=== PATIENT | female | born 1960 | race Caucasian/White ===

== ENCOUNTER 2019-01-24 18:42 | Emergency (ER) | payer BC, OTHER ==
[~2019-01-24] VITALS: Ht 165.1 cm; Wt 99.8 kg
[~2019-01-24 18:42] MED LIST: ACET300T4 PO; IBUP800T24 PO; INSLANTI SC; INSUINJ7 IJ; LEVO50TA7 PO; OMEP20TA44 PO; ONDA-143 PO; PAR20T PO
[2019-01-24 19:52] VITALS: BP 140/93
== END 2019-01-25 00:44 | disposition home or self-care (01) ==
LOC: ER 18:42
DX: R07.89 Other chest pain (principal); R07.81 Pleurodynia; E11.9 Type 2 diabetes mellitus without complications; K21.9 Gastro-esophageal reflux disease without esophagitis; E78.5 Hyperlipidemia, unspecified; I10 Essential (primary) hypertension; E07.9 Disorder of thyroid, unspecified; Z79.4 Long term (current) use of insulin; Z79.899 Other long term (current) drug therapy
CPT/HCPCS: 71046

== ENCOUNTER 2020-03-10 17:30 | Emergency (ER) | payer MEDICAID, OTHER ==
[~2020-03-10] VITALS: Ht 165.1 cm; Wt 93.0 kg
[2020-03-10] MEDS ORDERED: PANTOPRAZOLE 40 MG/10 ML VIAL INJ IV STA (18:56)
[2020-03-10] MEDS ORDERED: ONDANSETRON HCL 4 MG/2 ML VIAL IV ONE (19:00)
[2020-03-10] MEDS ORDERED: MORPHINE SULFATE 4 MG/ML SYR/VIAL IV ONE (19:00)
[2020-03-10 20:09] LABS: Basophils # (auto) 0.1 10 ^3/uL (0-0.2); Basophils % (auto) 0.9 % (0.0-2.0); Eosinophils # (auto) 0.1 10 ^3/uL (0-0.8); Hematocrit 41.3 % (36.0-46.0); Hemoglobin 14.2 g/dL (12.2-16.2); Lymphocytes # (auto) 1.9 10 ^3/uL (0.4-5.4); Mean Corpuscular Hgb Conc. 34.3 g/dL (32.0-36.0); Mean Corpuscular Volume 87.3 fL (80.0-100.0); Monocytes # (auto) 0.6 10 ^3/uL (0-1.3); Monocytes % (auto) 7.2 % (0.0-12.0); Neutrophils % (auto) 65.9 % (37.0-80.0); Nucleated Red Blood Cells % 0.2 %; Platelet Count (auto) 254 10^3/uL (140-450); Red Blood Cells 4.73 10^6/uL (4.0-5.20); Red Cell Distribution Width 13.5 % (11.8-14.3); White Blood Cell 7.6 10^3/uL (4.4-10.8)
[2020-03-10 20:15] LABS: Urine Bacteria FEW /hpf (None Seen); Urine Blood Negative /uL (Negative); Urine Hyaline Cast MANY /lpf (0 - 2); Urine Mucus MODERATE (None Seen); Urine Specific Gravity 1.032 (1.001-1.035); Urine WBC 35 /hpf (0 - 5)
[2020-03-10 20:49] LABS: Albumin 4.1 g/dL (3.4-5.0); Calcium 10.3 mg/dL (8.5-10.1); Potassium 4.5 mmol/L (3.5-5.1)
[2020-03-10 20:54] LABS: BUN/Creatinine Ratio 14.4; Bilirubin, Total 0.7 mg/dL (0.2-1.0); Total Protein 7.7 g/dL (6.4-8.2)
[2020-03-11 00:30] VITALS: BP 142/76
== END 2020-03-11 00:33 | disposition home or self-care (01) ==
LOC: ER 17:30
DX: N39.0 Urinary tract infection, site not specified (principal)
CPT/HCPCS: 36415; 74176; 80053; 81001; 83690; 85025; 93005

== ENCOUNTER 2020-07-19 14:41 | Inpatient (IN) | payer BC, MEDICAID ==
[~2020-07-19] VITALS: Ht 165.1 cm; Wt 86.7 kg
[~2020-07-19 14:41] MED LIST changes: -IBUP800T24 PO; +IBUP800T27 PO
[2020-07-19 15:20] LABS: Basophils # (auto) 0.1 10 ^3/uL (0-0.2); Basophils % (auto) 0.8 % (0.0-2.0); Eosinophils # (auto) 0.1 10 ^3/uL (0-0.8); Eosinophils % (auto) 1.1 % (0.0-7.0); Hematocrit 36.3 % (36.0-46.0); Hemoglobin 12.7 g/dL (12.2-16.2); Lymphocytes # (auto) 1.1 10 ^3/uL (0.4-5.4); Lymphocytes % (auto) 16.3 % (10.0-50.0); Mean Corpuscular Hemoglobin 31.1 pg (28.0-32.0); Mean Corpuscular Volume 88.6 fL (80.0-100.0); Monocytes # (auto) 0.4 10 ^3/uL (0-1.3); Monocytes % (auto) 6.7 % (0.0-12.0); Neutrophils # (auto) 4.8 10 ^3/uL (1.6-8.6); Neutrophils % (auto) 75.1 % (37.0-80.0); Platelet Count (auto) 205 10^3/uL (140-450); Red Blood Cells 4.09 10^6/uL (4.0-5.20); Red Cell Distribution Width 12.7 % (11.8-14.3); White Blood Cell 6.5 10^3/uL (4.4-10.8)
[2020-07-19 15:41] LABS: Partial Thromboplastin Time 20.5 sec (23.0-31.2)
[2020-07-19 15:43] LABS: Alanine Aminotransferase 16 U/L (13-56); Albumin 3.2 g/dL (3.4-5.0); Anion Gap 10 (5-15); Aspartate Aminotransferase 11 U/L (15-37); BUN/Creatinine Ratio 13.4; Blood Urea Nitrogen 11 mg/dL (7-18); Carbon Dioxide 20 mmol/L (21-32); Chloride 106 mmol/L (98-107); GFR African American 91 mL/min; GFR Non-African American 76 mL/min; Glucose 332 mg/dL (74-106); Potassium 3.3 mmol/L (3.5-5.1); Sodium 136 mmol/L (136-145)
[2020-07-19] MEDS ORDERED: ACETAMINOPHEN 325 MG TAB PO ONE (15:45)
[2020-07-19 15:48] LABS: Alkaline Phosphatase 91 U/L (45-117); Bilirubin, Total 0.7 mg/dL (0.2-1.0)
[2020-07-19] MEDS ORDERED: POTASSIUM CHL 20 Meq TABLET PO ONE (16:30)
[2020-07-19] MEDS ORDERED: LABETALOL HCL 5 MG/ML 4ML SYRINGE IV ONE (18:45)
[2020-07-19] MEDS ORDERED: INSULIN LANTUS (GLARGINE) 1 /0.01ml (100units/ml) SC ONE (19:15)
[2020-07-19] MEDS ORDERED: SODIUM CHLORIDE 0.9% 1,000 ML IV ONE (19:15)
[2020-07-19] MEDS ORDERED: ONDANSETRON HCL 4 MG/2 ML VIAL IV PRN (19:15)
[2020-07-19] MEDS ORDERED: NITROGLYCERIN 0.4 MG SL TAB SL PRN (19:15)
[2020-07-19] MEDS ORDERED: DEXTROSE (50%) 50ML SYRG IV PRN (19:15)
[2020-07-19] MEDS ORDERED: MORPHINE SULF INJ 2 MG/ML SYRINGE 1ML IV PRN (19:15)
[2020-07-19] MEDS: ACCU-CHEK COMFORT CURVE STRIP VI SCH (19:38)
[2020-07-19] MEDS: MORPHINE SULF INJ 2 MG/ML SYRINGE 1ML IV PRN (19:51)
[2020-07-19] MEDS: hydrALAZINE HCL 20 MG/ML VL IV PRN (21:35)
[2020-07-19] MEDS ORDERED: LORazepam 2MG/ML-1ML VIAL IV PRN (22:15)
[2020-07-19] MEDS: InsuLIN REG 1unit/0.01ml Soln (100units/ml) SC SCH (22:31)
[2020-07-19 22:46] LABS: Urine Bacteria NONE SEEN /hpf (None Seen); Urine Blood Negative /uL (Negative); Urine Specific Gravity 1.015 (1.001-1.035); Urine WBC 1 /hpf (0 - 5)
[2020-07-20] VITALS (8 sets, daily range): BP systolic 143–160; BP diastolic 69–79
[2020-07-20] MEDS ORDERED: DULO60CA PO (05:55)
[2020-07-20] MEDS ORDERED: ZOLP10TA PO (05:55)
[2020-07-20] MEDS ORDERED: CHOL20007 PO (05:55)
[2020-07-20] MEDS ORDERED: CYA100I IM (05:55)
[2020-07-20] MEDS ORDERED: ATOR10TA52 PO (05:55)
[2020-07-20] MEDS ORDERED: LISI2.5T47 PO (05:55)
[2020-07-20] MEDS ORDERED: LEVO100I IV (06:30)
[2020-07-20] MEDS: ACCU-CHEK COMFORT CURVE STRIP VI SCH ×4 (06:37→22:06)
[2020-07-20] MEDS: InsuLIN REG 1unit/0.01ml Soln (100units/ml) SC SCH ×4 (06:46→22:09)
[2020-07-20] MEDS: MORPHINE SULF INJ 2 MG/ML SYRINGE 1ML IV PRN (16:03)
[2020-07-20] MEDS: PRAMIPEXOLE DIHYDROCHLORIDE MO 0.25 MG TAB PO SCH (19:50)
[2020-07-20] MEDS: hydrALAZINE HCL 20 MG/ML VL IV PRN (22:07)
[2020-07-21] MEDS: MORPHINE SULF INJ 2 MG/ML SYRINGE 1ML IV PRN (03:24)
[2020-07-21 05:00] VITALS: BP_SYST 151; BP_SYST 95; BP_DIAS 59; BP_DIAS 72
[2020-07-21] MEDS: ACCU-CHEK COMFORT CURVE STRIP VI SCH ×4 (06:43→22:21)
[2020-07-21] MEDS: InsuLIN REG 1unit/0.01ml Soln (100units/ml) SC SCH ×4 (06:45→22:31)
[2020-07-21 08:31] VITALS: BP 138/73
[2020-07-21 10:25] LABS: Basophils # (auto) 0.1 10 ^3/uL (0-0.2); Basophils % (auto) 0.6 % (0.0-2.0); Eosinophils # (auto) 0 10 ^3/uL (0-0.8); Eosinophils % (auto) 0.2 % (0.0-7.0); Hematocrit 41.2 % (36.0-46.0); Hemoglobin 14.4 g/dL (12.2-16.2); Lymphocytes # (auto) 1.3 10 ^3/uL (0.4-5.4); Lymphocytes % (auto) 14.4 % (10.0-50.0); Mean Corpuscular Hemoglobin 31.1 pg (28.0-32.0); Mean Corpuscular Hgb Conc. 35.1 g/dL (32.0-36.0); Mean Corpuscular Volume 88.8 fL (80.0-100.0); Monocytes # (auto) 0.5 10 ^3/uL (0-1.3); Monocytes % (auto) 4.9 % (0.0-12.0); Neutrophils # (auto) 7.4 10 ^3/uL (1.6-8.6); Neutrophils % (auto) 79.9 % (37.0-80.0); Platelet Count (auto) 251 10^3/uL (140-450); Red Blood Cells 4.64 10^6/uL (4.0-5.20); White Blood Cell 9.3 10^3/uL (4.4-10.8)
[2020-07-21 10:42] LABS: Albumin 3.8 g/dL (3.4-5.0); Calcium 9.7 mg/dL (8.5-10.1); Magnesium 1.7 mg/dL (1.6-2.6); Potassium 4.6 mmol/L (3.5-5.1)
[2020-07-21 10:47] LABS: Total Protein 7.5 g/dL (6.4-8.2)
[2020-07-21] MEDS ORDERED: ZOLPIDEM TARTRATE 5 MG TAB PO PRN (11:15)
[2020-07-21] MEDS: PARoxetine 20 MG TAB PO ONE ×2 (11:15→12:00)
[2020-07-21] MEDS ORDERED: LEVOTHYROXINE SODIUM 50 MCG TAB PO ONE (11:15)
[2020-07-21] MEDS ORDERED: HYDROcodone-ACET 5/325MG TAB PO PRN (12:30)
[2020-07-21 13:00] VITALS: BP 145/80
[2020-07-21] MEDS: DULoxetine HCL 30 MG CAP PO SCH (13:05)
[2020-07-21] MEDS: LISINOPRIL 5 MG TAB PO SCH (13:06)
[2020-07-21 16:44] VITALS: BP 127/71
[2020-07-21] MEDS: PRAMIPEXOLE DIHYDROCHLORIDE MO 0.25 MG TAB PO SCH (20:11)
[2020-07-21 21:12] LABS: % Iron Saturation 32.2 % (15-50)
[2020-07-21 22:00] VITALS: BP 147/72
[2020-07-21] MEDS: INSULIN LANTUS (GLARGINE) 1 /0.01ml (100units/ml) SC SCH (22:31)
[2020-07-22 05:00] VITALS: BP 145/79
[2020-07-22] MEDS: ACCU-CHEK COMFORT CURVE STRIP VI SCH ×2 (06:36→12:11)
[2020-07-22] MEDS: InsuLIN REG 1unit/0.01ml Soln (100units/ml) SC SCH ×2 (06:42→12:12)
[2020-07-22] MEDS ORDERED: LEVOTHYROXINE SODIUM 50 MCG TAB PO SCH (07:00)
[2020-07-22 08:18] VITALS: BP 126/77
[2020-07-22] MEDS: DULoxetine HCL 30 MG CAP PO SCH (09:26)
[2020-07-22] MEDS: LISINOPRIL 5 MG TAB PO SCH (09:27)
[2020-07-22 09:36] LABS: Albumin 3.4 g/dL (3.4-5.0); Calcium 9.4 mg/dL (8.5-10.1); Magnesium 2.1 mg/dL (1.6-2.6); Potassium 4.8 mmol/L (3.5-5.1)
[2020-07-22 09:40] LABS: BUN/Creatinine Ratio 14.6; Bilirubin, Total 0.7 mg/dL (0.2-1.0); Phosphorus 3.6 mg/dL (2.5-4.90); Total Protein 6.9 g/dL (6.4-8.2)
[2020-07-22] MEDS ORDERED: PARoxetine 20 MG TAB PO SCH (10:00)
[2020-07-22] MEDS: INSULIN LANTUS (GLARGINE) 1 /0.01ml (100units/ml) SC SCH (10:00)
[2020-07-22 12:42] VITALS: BP 132/75
[2020-07-22 14:04] VITALS: BP 132/75
== END 2020-07-22 14:44 | disposition home or self-care (01) | DRG 312 ==
LOC: EDBD 14:41 → ER 14:43 → TELE 19:19 → TELE-CENTR 07-20 06:00
PROVIDERS: ADMIT Internal Medicine; ATTEND Internal Medicine
DX: R55 Syncope and collapse (principal); F32.9 Major depressive disorder, single episode, unspecified; K21.9 Gastro-esophageal reflux disease without esophagitis; E03.9 Hypothyroidism, unspecified; S00.03XA Contusion of scalp, initial encounter; S13.4XXA Sprain of ligaments of cervical spine, initial encounter; E87.6 Hypokalemia; Z20.822 Contact with and (suspected) exposure to COVID-19; G25.81 Restless legs syndrome; G47.00 Insomnia, unspecified; W18.39XA Other fall on same level, initial encounter; I11.9 Hypertensive heart disease without heart failure; E11.9 Type 2 diabetes mellitus without complications; E78.5 Hyperlipidemia, unspecified; Z81.8 Family history of other mental and behavioral disorders; Z82.5 Family history of asthma and other chronic lower respiratory diseases; Z82.49 Family history of ischemic heart disease and other diseases of the circulatory system; Z83.3 Family history of diabetes mellitus; Z90.49 Acquired absence of other specified parts of digestive tract; Z90.89 Acquired absence of other organs; Z82.61 Family history of arthritis; Y93.89 Activity, other specified; Y92.89 Other specified places as the place of occurrence of the external cause; Y99.8 Other external cause status; Z79.899 Other long term (current) drug therapy
CPT/HCPCS: 36415; 70450; 70551; 71045; 72125; 80053; 81001; 82728; 82962; 83540; 83550; 83735; 84100; 84484; 85025; 85610; 85730; 87426; 93005; 93306; 95819; G0378; J1815

== ENCOUNTER 2020-12-02 14:30 | Emergency (ER) | payer BC, MEDICAID ==
[~2020-12-02] VITALS: Ht 165.1 cm; Wt 88.9 kg
[~2020-12-02 14:30] MED LIST changes: -ACET300T4 PO; +ATOR10TA52 PO; +CHOL20007 PO; +CYA100I IM; +DULO60CA PO; +LEVO100I IV; +LISI2.5T47 PO; -PAR20T PO; +ZOLP10TA PO
[2020-12-02 15:23] VITALS: BP 132/62
[2020-12-02] MEDS ORDERED: ACETAMINOPHEN/CODEINE#3 (300/30mg) TAB PO ONE (15:30)
== END 2020-12-02 16:53 | disposition home or self-care (01) ==
LOC: ER 14:30
DX: S00.03XA Contusion of scalp, initial encounter (principal); I10 Essential (primary) hypertension; E11.9 Type 2 diabetes mellitus without complications; E78.00 Pure hypercholesterolemia, unspecified; Z90.49 Acquired absence of other specified parts of digestive tract; Z90.89 Acquired absence of other organs; Z79.4 Long term (current) use of insulin; Z79.899 Other long term (current) drug therapy; W06.XXXA Fall from bed, initial encounter; Y93.89 Activity, other specified; Y92.89 Other specified places as the place of occurrence of the external cause; Y99.8 Other external cause status
CPT/HCPCS: 70450; 72040

== ENCOUNTER 2021-12-18 13:55 | Emergency (ER) | payer BC, MEDICAID ==
[~2021-12-18] VITALS: Ht 165.1 cm; Wt 95.0 kg
[2021-12-18] MEDS ORDERED: ONDANSETRON HCL 4 MG/2 ML VIAL IV ONE (14:15)
[2021-12-18] MEDS ORDERED: MORPHINE SULFATE 4 MG/ML SYR/VIAL IV ONE (14:15)
[2021-12-18] MEDS ORDERED: SODIUM CHLORIDE 0.9% 500 ML IVB ONE (14:15)
[2021-12-18 14:40] LABS: Hematocrit 41.6 % (36.0-46.0); Hemoglobin 13.7 g/dL (12.2-16.2); Mean Corpuscular Hgb Conc. 32.9 g/dL (32.0-36.0); Mean Corpuscular Volume 85.2 fL (80.0-100.0); Red Blood Cells 4.88 10^6/uL (4.0-5.20); Red Cell Distribution Width 14.6 % (11.8-14.3)
[2021-12-18 14:46] LABS: Albumin 3.7 g/dL (3.4-5.0); Calcium 9.3 mg/dL (8.5-10.1); Potassium 4.2 mmol/L (3.5-5.1)
[2021-12-18 14:48] LABS: BUN/Creatinine Ratio 8.8
[2021-12-18 15:00] LABS: Bilirubin, Total 0.6 mg/dL (0.2-1.0); Total Protein 7.2 g/dL (6.4-8.2)
[2021-12-18 15:38] LABS: Basophils % (manual) 0 (0.0-2.0); Blast Cells 0; Metamyelocytes % 0; Myelocytes % 0; Promyelocytes % 0; Reactive Lymphocytes 0
[2021-12-18 16:26] LABS: Band Neutrophils % (manual) 2; Eosinophils % (manual) 6 (0-7); Lymphocytes % (manual) 21 (10.0-50.0); Monocytes % (manual) 4 (0-12)
[2021-12-18] MEDS ORDERED: TRAM-297 PO (17:07)
[2021-12-18 18:27] VITALS: BP 128/88
[2021-12-18 19:24] LABS: Urine Bacteria FEW /hpf (None Seen); Urine Blood Negative /uL (Negative); Urine Budding Yeast FEW /hpf (None Seen); Urine Specific Gravity 1.009 (1.001-1.035); Urine WBC 139 /hpf (0 - 5)
== END 2021-12-18 18:27 | disposition home or self-care (01) ==
LOC: ER 13:55
DX: R10.11 Right upper quadrant pain (principal); R10.31 Right lower quadrant pain; I10 Essential (primary) hypertension; E11.9 Type 2 diabetes mellitus without complications; E78.5 Hyperlipidemia, unspecified; E03.9 Hypothyroidism, unspecified; Z90.49 Acquired absence of other specified parts of digestive tract; Z90.89 Acquired absence of other organs; Z79.4 Long term (current) use of insulin; Z79.1 Long term (current) use of non-steroidal anti-inflammatories (NSAID); Z79.899 Other long term (current) drug therapy
CPT/HCPCS: 36415; 74176; 80053; 81001; 82150; 83690; 85007; 85027; 96360; 99284; J7040

== ENCOUNTER 2022-07-31 10:58 | Emergency (ER) | payer BC, MEDICAID ==
[~2022-07-31] VITALS: Ht 165.1 cm; Wt 100.0 kg
[~2022-07-31 10:58] MED LIST changes: +TRAM-297 PO
[2022-07-31] MEDS ORDERED: IOHEXOL 350 MG/ML 100ML IJ ONE (11:35)
[2022-07-31 11:45] LABS: INR 0.97 (0.9-1.15); Partial Thromboplastin Time 24.7 sec (24.6-33.4)
[2022-07-31 12:10] LABS: Basophils # (auto) 0.1 10 ^3/uL (0-0.2); Basophils % (auto) 0.9 % (0.0-2.0); Eosinophils # (auto) 0.2 10 ^3/uL (0-0.8); Eosinophils % (auto) 1.9 % (0.0-7.0); Hematocrit 42.1 % (36.0-46.0); Hemoglobin 14.7 g/dL (12.2-16.2); Lymphocytes # (auto) 1.9 10 ^3/uL (0.4-5.4); Lymphocytes % (auto) 19.2 % (10.0-50.0); Mean Corpuscular Hemoglobin 30.4 pg (28.0-32.0); Mean Corpuscular Hgb Conc. 34.9 g/dL (32.0-36.0); Mean Corpuscular Volume 87.3 fL (80.0-100.0); Monocytes # (auto) 0.5 10 ^3/uL (0-1.3); Monocytes % (auto) 5.3 % (0.0-12.0); Neutrophils # (auto) 7.2 10 ^3/uL (1.6-8.6); Neutrophils % (auto) 72.7 % (37.0-80.0); Nucleated Red Blood Cells % 0.1 %; Red Blood Cells 4.82 10^6/uL (4.0-5.20); Red Cell Distribution Width 13.9 % (11.8-14.3); White Blood Cell 9.9 10^3/uL (4.4-10.8)
[2022-07-31 12:17] LABS: Albumin 3.7 g/dL (3.4-5.0); Calcium 9.2 mg/dL (8.5-10.1); Magnesium 1.8 mg/dL (1.6-2.6); Potassium 3.8 mmol/L (3.5-5.1)
[2022-07-31 12:21] LABS: Bilirubin, Total 0.5 mg/dL (0.2-1.0); Total Protein 6.7 g/dL (6.4-8.2)
[2022-07-31 14:30] LABS: Urine Bacteria NONE SEEN /hpf (None Seen); Urine Blood Negative /uL (Negative); Urine Mucus FEW (None Seen); Urine WBC 11 /hpf (0 - 5)
[2022-07-31 14:36] LABS: Urine Specific Gravity > 1.050 (1.001-1.035)
[2022-07-31] MEDS ORDERED: CEPH-322 PO (15:28)
[2022-07-31] MEDS ORDERED: CIPR-173 PO (16:11)
[2022-07-31 16:15] VITALS: BP 123/57
== END 2022-07-31 16:24 | disposition home or self-care (01) ==
LOC: ER 10:58
DX: R07.89 Other chest pain (principal); N39.0 Urinary tract infection, site not specified
CPT/HCPCS: 36415; 71045; 71275; 80053; 81001; 83735; 83880; 84484; 85025; 85610; 85730; 93005; 99285; Q9967

== ENCOUNTER 2024-11-02 20:09 | Emergency (ER) | payer BC, MEDICAID ==
[~2024-11-02] VITALS: Ht 165.1 cm; Wt 99.4 kg
[~2024-11-02 20:09] MED LIST changes: +CEPH250C PO; +CIPR-173 PO; -DULO60CA PO; +DULO60CA41 PO; +IBUP-1456 PO; -IBUP800T27 PO
--- NOTE | 2024-11-02 20:39 | ED.PDOC ---
Psychiatric HPI Comments 64-year-old female who came to ER for overdose. Patient states at about 8:00 p.m. last night, she had an argument with her , she felt very upset, and she intentionally took 12 tablets of naproxen 500 mg. Patient denies being suicidal. Denies any homicidal or hallucinations. Denies any prior history of self-harm. Patient at this time experiencing epigastric pain with nausea. Chief Complaint: Overdose Time Seen by MD: 20:38 Primary Care Provider: MATA Diaz Notes: Nurses Notes Information Source: Patient Severity: Unable to Care for Self, Unable to Control Self Severity of Pain: Moderate Severity of Mental Status: Moderate Severity of Symptoms: Moderate Timing: Minutes Presents with: Depression, Anxiety, Unclear Thinking, Suicidal Ideation Attempt: Ingestion Ingestion: Intentional, Multiple, Ingestion Observed, Drug(s) Ingested (Naproxen 500 mg), Amount Ingested (12 tablets) Circumstance: Medical Clearance Stressors: Family, Relationships History of: Depression Associated signs and symptoms: Depression, Hopeless, Anxiety, Nausea, Abdominal Pain Past Medical History PAST MEDICAL HISTORY: Depression, DM, GERD, High Lipids, HTN, Thyroid Surgical History: Cholecystectomy, Tonsillectomy Surgical History (Other): Knee surgery TEST PREPARER History: No Pertinent TEST PREPARER History Family History Family History: Family hx of DM, Family hx of HTN Social History Smoker: Non-Smoker Alcohol: Denies ETOH Use Drugs: Denies Drug Use Lives In: Home Constitutional: denies: chills, diaphoresis, fatigue, fever, malaise, sweats, weakness, others EENTM: denies: blurred vision, double vision, ear bleeding, ear discharge, ear drainage, ear pain, ear ringing, eye pain, eye redness, hearing loss, mouth pa in, mouth swelling, nasal discharge, nose bleeding, nose congestion, nose pain, photophobia, tearing, throat pain, throat swelling, voice changes, others Respiratory: denies: cough, hemoptysis, orthopnea, SOB at rest, shortness of breath, SOB with excertion, stridor, wheezing, others Cardiovascular: denies: chest pain, dizzy spells, diaphoresis, Dyspnea on exertion, edema, irregular heart beat, left arm pain, lightheadedness, palpitations, PND, syncope, others Gastrointestinal: reports: abdominal pain, nausea; denies: abdomen distended, blood streaked bowels, constipated, diarrhea, dysphagia, difficulty swallowing, hematemesis, melena, poor appetite, poor fluid intake, rectal bleeding, rectal pain, vomiting, others Physical Exam General Appearance: No Apparent Distress, Normal HEENT: Normal ENT Inspection, Pharynx Normal, TMs Normal Neck: Full Range of Motion, Non-Tender, Normal, Normal Inspection Respiratory: Chest Non-Tender, Lungs Clear, No Accessory Muscle Use, No Respiratory Distress, Normal Breath Sounds Cardiovascular: No Edema, No JVD, No Murmur, No Gallop, Normal Peripheral Pulses, Regular Rate/Rhythm Breast Exam: Deferred Gastrointestinal: No Organomegaly, Non Tender, No Pulsatile Mass, Normal Bowel Sounds, Soft Genitalia: Deferred Pelvic: Deferred Rectal: Deferred Extremities: No calf tenderness, Normal capillary refill, Normal inspection, Normal range of motion, Non-tender, No pedal edema Musculoskeletal : Apperance: Normal Neurologic: Alert, verification engineer II-XII nml as Tested, No Motor Deficits, Normal Affect, Normal Mood, No Sensory Deficits Cerebellar Function: Normal Reflexes: Normal Skin: Dry, Normal Color, Warm Lymphatic: No Adenopathy Was a procedure done? Was a procedure done?: No Psych Differential Dx Psych. Differential Dx: Anxiety, Depression, Hopeless, Panic Disorder, Suicidal OD Differential Dx: Suicidal Attempt, Suicidal Gesture X-Ray, Labs, Meds, VS Vital Signs Date Time Temp Pulse Resp B/P (MAP) Pulse Ox O2 Delivery O2 Flow Rate FiO2 11/03/24 01:14 69 16 99 Room Air* 0 21 11/03/24 01:11 98.0 69 16 143/78 (99) 99 98.0 11/02/24 20:23 98.2 91 18 152/81 (104) 98 98.2 Lab Test 11/02/24 22:50 11/02/24 20:42 11/02/24 00:00 Range/Units Sodium Level 140 138 136-145 mmol/L Potassium Level 4.6 4.3 3.5-5.1 mmol/L Chloride Level 105 105 98-107 mmol/L Carbon Dioxide Level 25 26 20-31 mmol/L Anion Gap 10 7 5-15 Blood Urea Nitrogen 10 9 9-23 mg/dL Creatinine 1.19 H 1.24 H 0.550-1.02 mg/dL Glomerular Filtration Rate Calc 51 49 >90 mL/min BUN/Creatinine Ratio 8.4 L 7.3 L 10.0-20.0 Serum Glucose 266 H 262 H 74-106 mg/dL Calcium Level 9.8 10.3 8.7-10.4 mg/dL Total Bilirubin 0.7 0.6 0.2-1.0 mg/dL Aspartate Amino Transferase (AST) 13 14 13-40 U/L Alanine Aminotransferase (ALT) 17 19 7-40 U/L Alkaline Phosphatase 100 110 46-116 U/L Total Protein 6.5 6.5 5.7-8.2 g/dL Albumin 4.3 4.4 3.2-4.8 g/dL White Blood Count 8.7 4.4-10.8 10^3/uL Red Blood Count 4.75 4.0-5.20 10^6/uL Hemoglobin 13.9 12.2-16.2 g/dL Hematocrit 40.6 36.0-46.0 % Mean Corpuscular Volume 85.4 80.0-100.0 fL Mean Corpuscular Hemoglobin 29.2 28.0-32.0 pg Mean Corpuscular Hemoglobin Concent 34.1 32.0-36.0 g/dL Red Cell Distribution Width 14.5 H 11.8-14.3 % Platelet Count 308 140-450 10^3/uL Mean Platelet Volume 8.2 6.9-10.8 fL Neutrophils (%) (Auto) 61.7 37.0-80.0 % Lymphocytes (%) (Auto) 26.4 10.0-50.0 % Monocytes (%) (Auto) 7.7 0.0-12.0 % Eosinophils (%) (Auto) 3.3 0.0-7.0 % Basophils (%) (Auto) 0.9 0.0-2.0 % Neutrophils # (Auto) 5.4 1.6-8.6 10 ^3/uL Lymphocytes # (Auto) 2.3 0.4-5.4 10 ^3/uL Monocytes # (Auto) 0.7 0-1.3 10 ^3/uL Eosinophils # (Auto) 0.3 0-0.8 10 ^3/uL Basophils # (Auto) 0.1 0-0.2 10 ^3/uL Nucleated Red Blood Cells 0.0 % Salicylates Level < 3.0 -30 mg/dL Acetaminophen Level 2.0 L 10.0-20.0 UG/ML Plasma/Serum Blood Alcohol < 3.0 <10 mg/dL Urine Opiates Screen Neg NEGATIVE Urine Fentanyl Screen Neg NEGATIVE Urine Barbiturates Screen Neg NEGATIVE Urine Phencyclidine Screen Neg NEGATIVE Urine Amphetamines Screen Neg NEGATIVE Urine Benzodiazepines Screen Neg NEGATIVE Urine Cocaine Screen Neg NEGATIVE Urine Cannabinoids Screen Neg NEGATIVE Current Medications Medications (Trade) Dose Ordered Sig/Gifty Route Start Time Stop Time Status Last Admin Ondansetron HCl (Zofran Po) 4 mg ONCE ONCE PO 11/02/24 20:30 11/02/24 20:31 DC 11/03/24 01:10 Al Hydrox/Mg Hydrox/Simethicone (Maalox Plus) 15 ml ONCE ONCE PO 11/02/24 20:30 11/02/24 20:31 DC 11/03/24 01:09 Time of 1ST Reevaluation: 20:33 Reevaluation 1ST: Unchanged Patient Education/Counseling: Diagnosis, Treatment Family Education/Counseling: No Family Present Departure 1 Departure Time of Disposition: 22:30 Impression: Primary Impression: NSAID induced gastritis Disposition: 01 HOME / SELF CARE / HOMELESS Condition: Stable Discharged With: Self Comments Patient denies SI, Denies HI, able to make a safety plane and safety contract Critical Care Note Critical Care Time?: Yes (35 min-critical care time only) Critical care comment: Overdose Stability Stability form required: No Heart Score Heart Score: Heart Score Response (Comments) Value History N/A 0 EKG N/A 0 Age N/A 0 Risk Factors N/A 0 Troponin N/A 0 Total 0 I personally scribed for SRUTHI MA MD ([email or web address]) on 11/02/24 at 20:39. Electronically submitted by Darren Cazares ([email or web address]). SRUTHI MA MD Nov 02, 2024 20:39
[2024-11-02 21:02] LABS: Basophils # (auto) 0.1 10 ^3/uL (0-0.2); Basophils % (auto) 0.9 % (0.0-2.0); Eosinophils # (auto) 0.3 10 ^3/uL (0-0.8); Eosinophils % (auto) 3.3 % (0.0-7.0); Hematocrit 40.6 % (36.0-46.0); Hemoglobin 13.9 g/dL (12.2-16.2); Lymphocytes # (auto) 2.3 10 ^3/uL (0.4-5.4); Lymphocytes % (auto) 26.4 % (10.0-50.0); Mean Corpuscular Hemoglobin 29.2 pg (28.0-32.0); Mean Corpuscular Hgb Conc. 34.1 g/dL (32.0-36.0); Mean Corpuscular Volume 85.4 fL (80.0-100.0); Monocytes # (auto) 0.7 10 ^3/uL (0-1.3); Monocytes % (auto) 7.7 % (0.0-12.0); Neutrophils # (auto) 5.4 10 ^3/uL (1.6-8.6); Neutrophils % (auto) 61.7 % (37.0-80.0); Platelet Count (auto) 308 10^3/uL (140-450); Red Blood Cells 4.75 10^6/uL (4.0-5.20); Red Cell Distribution Width 14.5 % (11.8-14.3); White Blood Cell 8.7 10^3/uL (4.4-10.8)
[2024-11-02 21:13] LABS: Amphetamine Screen, Urine Neg (NEGATIVE); Barbiturate Scree,Urine Neg (NEGATIVE); Benzodiazephine Screen, Urine Neg (NEGATIVE); Cannabinoid Screen, Urine Neg (NEGATIVE); Cocaine Screen, Urine Neg (NEGATIVE); Opiate Scree,Urine Neg (NEGATIVE); Phencyclidine Screen, Urine Neg (NEGATIVE)
[2024-11-02 21:13] LABS: Salicylate < 3.0 mg/dL (-30)
[2024-11-02 21:14] LABS: Alanine Aminotransferase 19 U/L (7-40); Albumin 4.4 g/dL (3.2-4.8); Alkaline Phosphatase 110 U/L (46-116); Anion Gap 7 (5-15); Aspartate Aminotransferase 14 U/L (13-40); BUN/Creatinine Ratio 7.3 (10.0-20.0); Bilirubin, Total 0.6 mg/dL (0.2-1.0); Blood Urea Nitrogen 9 mg/dL (9-23); Calcium 10.3 mg/dL (8.7-10.4); Carbon Dioxide 26 mmol/L (20-31); Chloride 105 mmol/L (98-107); Potassium 4.3 mmol/L (3.5-5.1); Sodium 138 mmol/L (136-145); Total Protein 6.5 g/dL (5.7-8.2)
[2024-11-02 21:18] LABS: Blood Alcohol < 3.0 mg/dL (<10); Glucose 262 mg/dL (74-106)
[2024-11-02 23:29] LABS: Alanine Aminotransferase 17 U/L (7-40); Albumin 4.3 g/dL (3.2-4.8); Alkaline Phosphatase 100 U/L (46-116); Anion Gap 10 (5-15); Aspartate Aminotransferase 13 U/L (13-40); BUN/Creatinine Ratio 8.4 (10.0-20.0); Bilirubin, Total 0.7 mg/dL (0.2-1.0); Blood Urea Nitrogen 10 mg/dL (9-23); Calcium 9.8 mg/dL (8.7-10.4); Carbon Dioxide 25 mmol/L (20-31); Chloride 105 mmol/L (98-107); Potassium 4.6 mmol/L (3.5-5.1); Sodium 140 mmol/L (136-145); Total Protein 6.5 g/dL (5.7-8.2)
[2024-11-02 23:34] LABS: Glucose 266 mg/dL (74-106)
[2024-11-03] MEDS: MAALOX PLUS or MAALOX 30 ML PO ONE (01:09)
[2024-11-03] MEDS: ONDANSETRON ODT 4 MG TAB PO ONE (01:10)
[2024-11-03 01:11] VITALS: BP 143/78; TEMP 98
[2024-11-03 01:14] VITALS: PULSE 69; RESP 16; O2SAT 99
== END 2024-11-03 01:12 | disposition home or self-care (01) ==
LOC: ER 20:09
DX: R10.13 Epigastric pain (principal); T39.395A Adverse effect of other nonsteroidal anti-inflammatory drugs [NSAID], initial encounter; E11.9 Type 2 diabetes mellitus without complications; F32.A Depression, unspecified; F41.9 Anxiety disorder, unspecified; I10 Essential (primary) hypertension; Z90.89 Acquired absence of other organs; Z90.49 Acquired absence of other specified parts of digestive tract; Z79.899 Other long term (current) drug therapy; X58.XXXA Exposure to other specified factors, initial encounter
CPT/HCPCS: 36415; 80053; 80307; 80320; 80329; 85025; 99283; Q0162

== ENCOUNTER 2024-11-15 07:57 | Outpatient (CLI) | payer BC, MEDICAID ==
[~2024-11-15] VITALS: Ht 165.1 cm; Wt 98.4 kg
[2024-11-15] MEDS: REGADENOSON 0.4 MG/5 ML SYRG IV ONE ×2 (09:55)
== END 2024-11-15 17:00 | disposition home or self-care (01) ==
LOC: XYW 07:57
PROVIDERS: ATTEND Specialist
DX: I12.9 Hypertensive chronic kidney disease with stage 1 through stage 4 chronic kidney disease, or unspecified chronic kidney disease (principal); N18.9 Chronic kidney disease, unspecified; E11.22 Type 2 diabetes mellitus with diabetic chronic kidney disease; E66.09 Other obesity due to excess calories; R07.9 Chest pain, unspecified
CPT/HCPCS: 93017; J2785

== ENCOUNTER 2025-04-03 07:12 | Emergency (ER) | payer BC ==
[~2025-04-03] VITALS: Ht 165.1 cm; Wt 96.5 kg
--- NOTE | 2025-04-03 07:35 | ED.PDOC ---
History of present illness HPI Comments This is a 64 year old female presenting to the ED with chief complaint of hyperglycemia. Patient reports that she has been experiencing elevated blood sugar for the past few days due to being out of her Lantus for the past 5 days. Patient relays that she has been experiencing nausea and associated diarrhea d uring this time. Patient states her blood glucose read over 600 this morning. Patient denies any vomiting, abdominal pain, chest pain, SOB, headache, dizziness, or excess thirst. Chief Complaint: Diabetes Time Seen by MD: 07:33 Primary Care Provider: MATA History of present illness: Nurses Notes, Medications, Allergies Allergies: Coded Allergies: Amoxicillin (Verified Allergy, Severe, 11/15/24) Cephalexin (Verified Allergy, Severe, 11/15/24) Clavulanic Acid (Verified Allergy, Severe, 11/15/24) Ketorolac Tromethamine (Verified Allergy, Severe, 11/15/24) Home Meds Active Scripts Ciprofloxacin Hcl (Cipro) 500 Mg Tab, 500 MG PO BID for 7 Days, #14 TBS Prov:ALBA WALLIS MD 07/31/22 Cephalexin (KEFLEX CAPSULE) 250 Mg Cp, 250 MG PO QID for 7 Days, #28 TAB Prov:ALBA WALLIS MD 07/31/22 Tramadol Hcl (Ultram) 50 Mg Tab, 1 TAB PO Q6HR, #30 TAB Prov:VINICIO GALVAN MD 12/18/21 Reported Medications Levothyroxine Sodium (SYNTHROID) Unknown Strength Ij, IV, INJ 07/20/20 Zolpidem Tartrate (Ambien) Unknown Strength Tab, PO QPM, #30 TAB 5 Refills 07/20/20 Atorvastatin Calcium (ATORVASTATIN CALCIUM) Unknown Strength Tab, PO DAILY, #30 TAB 5 Refills 07/20/20 Vitamin B12 (Vitamin B-12) Unknown Strength Ij, IM, INJ 07/20/20 Cholecalciferol (VITAMIN D3) Unknown Strength Tab, PO DAILY, #30 TAB 5 Refills 07/20/20 Lisinopril (Lisinopril) Unknown Strength Tab, PO DAILY for 30 Days, MG 07/20/20 Duloxetine Hcl (Cymbalta) Unknown Strength Cap, PO DAILY, #90 CAP 3 Refills 07/20/20 Insulin Glargine (Lantus) 100 Units/Ml Vial, 42 UNITS SC BID, INJ 03/05/15 Insulin Glulisine (Apidra) 1 Ml Inj, 1 ML IJ, INJ 03/05/15 Omeprazole ([facility] Omeprazole) 20 Mg Tab, 40 MG PO DAILY, TAB 03/05/15 Levothyroxine Sodium (Levothyroxine Sodium) 50 Mcg Tab, 50 MCG PO DAILY, TAB 03/05/15 Ibuprofen (Ibuprofen) 800 Mg Tab, 1 TAB PO Q6HR PRN for MILD PAIN, #90 TAB 1 R efill 03/05/15 Ondansetron (Zofran) 8 Mg Tab, 1 TAB PO Q8HR, #30 TAB 1 Refill 03/05/15 Information Source: Patient Mode of Arrival: Ambulatory Timing: Days Duration: Since onset Prehospital treatment: None Martin: None History of: Diabetes, Insulin use Associated signs and symptoms: Nausea Past Medical History PAST MEDICAL HISTORY: Depression, DM, GERD, High Lipids, HTN, Thyroid Surgical History: Cholecystectomy, Tonsillectomy ADMINISTRATIVE PROGRAM SPECIALIST History: No Pertinent ADMINISTRATIVE PROGRAM SPECIALIST History Family History Family History: Family hx of DM, Family hx of HTN Social History Smoker: Non-Smoker Alcohol: Denies ETOH Use Drugs: Denies Drug Use Lives In: Home Constitutional: denies: chills, diaphoresis, fatigue, fever, malaise, sweats, weakness, others EENTM: denies: blurred vision, double vision, ear bleeding, ear discharge, ear drainage, ear pain, ear ringing, eye pain, eye redness, hearing loss, mouth pain, mouth swelling, nasal discharge, nose bleeding, nose congestion, nose pain, photophobia, tearing, throat pain, throat swelling, voice changes, others Respiratory: denies: cough, hemoptysis, orthopnea, SOB at rest, shortness of breath, SOB with excertion, stridor, wheezing, others Cardiovascular: denies: chest pain, dizzy spells, diaphoresis, Dyspnea on exertion, edema, irregular heart beat, left arm pain, lightheadedness, palpitations, PND, syncope, others Gastrointestinal: reports: diarrhea, nausea; denies: abdomen distended, abdominal pain, blood streaked bowels, constipated, dysphagia, difficulty swallowing, hematemesis, melena, poor appetite, poor fluid intake, rectal bleeding, rectal pain, vomiting, others Genitourinary: denies: abnormal vagina bleeding, burning, dyspareunia, dysuria, flank pain, frequency, hematuria, incontinence, pain, , vagina discharge, urgency, others Neurological: denies: dizziness, fainting, headache, left sided numbness, left sided weakness, numbness, paresthesia, pre-existing deficit, right sided numbness, right sided weakness, seizure, speech problems, tingling, tremors, weakness, others Musculoskeletal: denies: back pain, gout, joint pain, joint swelling, muscle pain, muscle stiffness, neck pain, others Integumetry: denies: bruises, change in color, change in hair/nails, dryness, laceration, lesions, lumps, rash, wounds, others Allergic/Immunocompromised: denies: Difficulty Healing, Frequent Infections, Hives, Itching, others Hematologic/Lymphatic: denies: anemia, blood clots, easy bleeding, easy bruising, swollen glands, others Endocrine: denies: excessive hunger, excessive sweating, excessive thirst, excessive urination, flushing, intolerance to cold, intolerance to heat, unexplained weight gain, unexplained weight loss, others Psychiatric: denies: anxiety, bipolar disorder, depression, hopeless, panic disorder, schizophrenia, sleepless, suicidal, others All Other Systems: Reviewed and Negative Physical Exam General Appearance: No Apparent Distress, Normal HEENT: Normal ENT Inspection, Pharynx Normal, TMs Normal Neck: Full Range of Motion, Non-Tender, Normal, Normal Inspection Respiratory: Chest Non-Tender, Lungs Clear, No Accessory Muscle Use, No Respiratory Distress, Normal Breath Sounds Cardiovascular: No Edema, No JVD, No Murmur, No Gallop, Normal Peripheral Pulses, Regular Rate/Rhythm Breast Exam: Deferred Gastrointestinal: No Organomegaly, Non Tender, No Pulsatile Mass, Normal Bowel Sounds, Soft Genitalia: Deferred Pelvic: Deferred Rectal: Deferred Extremities: No calf tenderness, Normal capillary refill, Normal inspection, Normal range of motion, Non-tender, No pedal edema Musculoskeletal : Apperance: Normal Neurologic: Alert, terminal operator II-XII nml as Tested, No Motor Deficits, Normal Affect, Normal Mood, No Sensory Deficits Cerebellar Function: Normal Reflexes: Normal Skin: Dry, Normal Color, Warm Lymphatic: No Adenopathy Was a procedure done? Was a procedure done?: No Differential Diagnosis (DM) Differential Diagnosis: Gastritis, Gastroenteritis X-Ray, Labs, Meds, VS Vital Signs Date Time Temp Pulse Resp B/P (MAP) Pulse Ox O2 Delivery O2 Flow Rate FiO2 04/03/25 11:36 84 16 100 Room Air* 0 21 04/03/25 09:22 98.0 68 17 130/75 (93) 100 98.0 04/03/25 09:22 68 17 100 Room Air 04/03/25 07:13 97.5 72 15 122/51 100 97.5 Lab Test 04/03/25 11:03 04/03/25 08:27 04/03/25 07:34 04/03/25 07:21 Range/Units POC Glucose 256 H 474 *H 70-106 mg/dl Urine Color Colorless Yellow Urine Clarity Clear Clear Urine pH 6.0 5.0-9.0 Urine Specific [place] 1.013 1.001-1.035 Urine Protein Negative Negative Urine Ketones Negative Negative Urine Blood Negative Negative /uL Urine Nitrite Negative Negative Urine Bilirubin Negative Negative Urine Urobilinogen Normal Negative mg/dL Urine Leukocyte Esterase 2+ Negative /uL Urine RBC 2 0 - 4 /hpf Urine Microscopic WBC 14 H 0-5 /HPF Urine Squamous Epithelial Cells Few <5 /hpf Urine Bacteria Few H None Seen /hpf Urine Glucose 4+ H Normal mg/dL White Blood Count 8.5 4.4-10.8 10^3/uL Red Blood Count 4.52 4.0-5.20 10^6/uL Hemoglobin 13.3 12.2-16.2 g/dL Hematocrit 39.6 36.0-46.0 % Mean Corpuscular Volume 87.6 80.0-100.0 fL Mean Corpuscular Hemoglobin 29.4 28.0-32.0 pg Mean Corpuscular Hemoglobin Concent 33.5 32.0-36.0 g/dL Red Cell Distribution Width 13.7 11.8-14.3 % Platelet Count 257 140-450 10^3/uL Mean Platelet Volume 8.3 6.9-10.8 fL Neutrophils (%) (Auto) 78.2 37.0-80.0 % Lymphocytes (%) (Auto) 12.3 10.0-50.0 % Monocytes (%) (Auto) 6.3 0.0-12.0 % Eosinophils (%) (Auto) 2.2 0.0-7.0 % Basophils (%) (Auto) 1.0 0.0-2.0 % Neutrophils # (Auto) 6.7 1.6-8.6 10 ^3/uL Lymphocytes # (Auto) 1.0 0.4-5.4 10 ^3/uL Monocytes # (Auto) 0.5 0-1.3 10 ^3/uL Eosinophils # (Auto) 0.2 0-0.8 10 ^3/uL Basophils # (Auto) 0.1 0-0.2 10 ^3/uL Nucleated Red Blood Cells 0.0 % Sodium Level 134 L 136-145 mmol/L Potassium Level 4.2 3.5-5.1 mmol/L Chloride Level 99 98-107 mmol/L Carbon Dioxide Level 23 20-31 mmol/L Anion Gap 12 5-15 Blood Urea Nitrogen 13 9-23 mg/dL Creatinine 1.32 H 0.550-1.02 mg/dL Glomerular Filtration Rate Calc 45 >90 mL/min BUN/Creatinine Ratio 9.8 L 10.0-20.0 Serum Glucose 460 *H 74-106 mg/dL Calcium Level 9.5 8.7-10.4 mg/dL Current Medications Medications (Trade) Dose Ordered Sig/Gifty Route Start Time Stop Time Status Last Admin Sodium Chloride 1,000 ml @ 1,000 mls/hr Q1H ONCE IV 04/03/25 11:00 04/03/25 11:59 04/03/25 11:28 Ceftriaxone Sodium 50 ml @ 100 mls/hr ONCE ONCE IV 04/03/25 11:00 04/03/25 11:29 DC 04/03/25 11:33 Time of 1ST Reevaluation: 08:33 Reevaluation 1ST: Unchanged Patient Education/Counseling: Diagnosis, Treatment Family Education/Counseling: No Family Present SEPSIS Sepsis Screen Date sepsis recognized/suspect: Apr 03, 2025 Time Sepsis recognized/suspect: 715 Recent Procedure: No On Antibiotic Therapy: No Respiratory Rate >20: No Heart Rate >90: No Temp<36 C (96.8 F) or >38.3 C: No SBP <90 or MAP <65 mmHG: No New Acute Mental Status Change: No Is the patient on CPAP, BIPAP,: No Physician Orders Sodium Chloride 0.9% (04/03/25 11:00) Vital Signs Date Time Temp Pulse Resp B/P (MAP) Pulse Ox O2 Delivery O2 Flow Rate FiO2 04/03/25 11:36 84 16 100 Room Air* 0 21 04/03/25 09:22 98.0 68 17 130/75 (93) 100 98.0 04/03/25 09:22 68 17 100 Room Air 04/03/25 07:13 97.5 72 15 122/51 100 97.5 Laboratory Tests Test 04/03/25 07:34 White Blood Count 8.5 10^3/uL (4.4-10.8) Medications Medications Dose Ordered Sig/Gifty Route Start Time Stop Time Status Last Admin Dose Admin Ceftriaxone Sodium 50 ml @ 100 mls/hr ONCE ONCE IV 04/03/25 11:00 04/03/25 11:29 DC 04/03/25 11:33 Sodium Chloride 1,000 ml @ 1,000 mls/hr Q1H ONCE IV 04/03/25 11:00 04/03/25 11:59 04/03/25 11:28 Departure 1 Departure Time of Disposition: 11:58 (Your blood sugars resolved. She is feeling better. We will discharge patient home with outpatient follow up) Impression: Primary Impression: Hyperglycemia Disposition: 01 HOME / SELF CARE / HOMELESS Condition: Stable Additional Instructions: It is important to follow up with your pharmacy and regular doctor and continue to take your regular medications. Discharged With: Self Critical Care Note Critical Care Time?: No Stability Stability form required: No Heart Score Heart Score: Heart Score Response (Comments) Value History N/A 0 EKG N/A 0 Age N/A 0 Risk Factors N/A 0 Troponin N/A 0 Total 0 I personally scribed for CHIVO ROMAN MD ([email or web address]) on 04/03/25 at 07:35. Electronically submitted by Yimi Snyder ([email or web address]). CHIVO ROMAN MD Apr 03, 2025 07:35
[2025-04-03 07:49] LABS: Hematocrit 39.6 % (36.0-46.0); Hemoglobin 13.3 g/dL (12.2-16.2); Mean Corpuscular Hemoglobin 29.4 pg (28.0-32.0); Mean Corpuscular Volume 87.6 fL (80.0-100.0); Nucleated Red Blood Cells % 0.0 %
[2025-04-03 07:56] LABS: Chloride 99 mmol/L (98-107); Potassium 4.2 mmol/L (3.5-5.1)
[2025-04-03 07:57] LABS: Anion Gap 12 (5-15); Calcium 9.5 mg/dL (8.7-10.4); Carbon Dioxide 23 mmol/L (20-31)
[2025-04-03 08:02] LABS: BUN/Creatinine Ratio 9.8 (10.0-20.0); Blood Urea Nitrogen 13 mg/dL (9-23); Sodium 134 mmol/L (136-145)
[2025-04-03 08:04] LABS: Glucose 460 mg/dL (74-106)
[2025-04-03 08:45] LABS: Urine Protein, UAD Negative (Negative)
[2025-04-03] MEDS: InsuLIN REG 1unit/0.01ml Soln (100units/ml) SC ONE (10:30)
[2025-04-03] MEDS: SODIUM CHLORIDE 0.9% 1,000 ML IV ONE (11:28)
[2025-04-03 11:36] VITALS: PULSE 84; RESP 16; O2SAT 100
[2025-04-03] MEDS ORDERED: INSLANTI SC (13:00)
[2025-04-03 13:16] VITALS: BP 122/70; PULSE 76; RESP 16; TEMP 97.8; O2SAT 96
== END 2025-04-03 13:18 | disposition home or self-care (01) ==
LOC: ER 07:12
DX: E11.65 Type 2 diabetes mellitus with hyperglycemia (principal); I10 Essential (primary) hypertension; F32.A Depression, unspecified; E78.5 Hyperlipidemia, unspecified; K21.9 Gastro-esophageal reflux disease without esophagitis; Z79.899 Other long term (current) drug therapy; Z90.89 Acquired absence of other organs; Z88.1 Allergy status to other antibiotic agents; Z88.0 Allergy status to penicillin; Z79.890 Hormone replacement therapy; Z79.4 Long term (current) use of insulin; Z90.49 Acquired absence of other specified parts of digestive tract
CPT/HCPCS: 36415; 80048; 81001; 82947; 85025; 96365; 99284; J0696; J7030; 82962; J1815